=== PATIENT | male | born 1980 | race Caucasian/White ===

== ENCOUNTER 2020-04-29 16:30 | Observation (INO) | payer MEDICARE, OTHER ==
[2020-04-29] MEDS ORDERED: ASPIRIN 81 MG TABLET, CHEWABLE PO ONE (16:46)
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
[2020-04-29 17:04] LABS: ABSOLUTE LYMPHOCYTES (AUTO) 2.1 10^3/uL (0.5-4.7); ABSOLUTE MONOCYTES (AUTO) 0.4 10^3/uL (0.1-1.4); BASOPHILS % (AUTO) 0.5 % (0-2); EOSINOPHILS % (AUTO) 0.4 % (0-6); HEMATOCRIT 49.2 % (37.9-51.0); LYMPHOCYTES % (AUTO) 28.1 % (13-45); MEAN CORPUSCULAR HEMOGLOBIN 30.8 pg (27.0-33.4); MEAN CORPUSCULAR HGB CONC 34.5 g/dL (32.0-36.0); MEAN CORPUSCULAR VOLUME 89 fl (80-97); MONOCYTES % (AUTO) 5.7 % (3-13); PLATELET COUNT 195 10^3/uL (150-450); RED BLOOD COUNT 5.51 10^6/uL (4.35-5.55); RED CELL DISTRIBUTION WIDTH 14.2 % (11.5-14.0); SEGMENTED NEUTROPHILS % (AUTO) 65.3 % (42-78); TOTAL CELLS COUNTED % (AUTO) 100 %; WHITE BLOOD COUNT 7.6 10^3/uL (4.0-10.5)
[2020-04-29 17:12] LABS: ALBUMIN 4.7 g/dL (3.5-5.0); ALKALINE PHOSPHATASE 53 U/L (38-126); ANION GAP 8 (5-19); ASPARTATE AMINO TRANSFERASE 68 U/L (17-59); BILIRUBIN,TOTAL 0.7 mg/dL (0.2-1.3); BLOOD UREA NITROGEN 20 mg/dL (7-20); CALCIUM 9.8 mg/dL (8.4-10.2); CARBON DIOXIDE 25 mmol/L (22-30); CHLORIDE 103 mmol/L (98-107); CREATINE KINASE 1268 U/L (55-170); GLUCOSE 107 mg/dL (75-110); TOTAL PROTEIN 7.3 g/dL (6.3-8.2)
--- NOTE | 2020-04-29 17:18 | RADIOLOGY REPORT (SQ) ---
EXAM DESCRIPTION: CHEST 2 VIEWS IMAGES COMPLETED DATE/TIME: 04/29/2020 4:59 pm REASON FOR STUDY: chest pain COMPARISON: None. EXAM PARAMETERS: NUMBER OF VIEWS: two views TECHNIQUE: Digital Frontal and Lateral radiographic views of the chest acquired. RADIATION DOSE: NA LIMITATIONS: none FINDINGS: LUNGS AND PLEURA: Hyperinflation of the lungs with some flattening of the diaphragms. No acute pulmonary consolidation. No pneumothorax or pleural effusion. MEDIASTINUM AND HILAR STRUCTURES: No masses or contour abnormalities. HEART AND VASCULAR STRUCTURES: Heart size at the upper limits of normal. No evidence for failure. BONES: No acute findings. HARDWARE: None in the chest. OTHER: Opaque artifact or something external to the patient overlies the anterior mediastinum on the lateral image. IMPRESSION: 1. Hyperinflation of the lungs. No acute pulmonary findings. TECHNICAL DOCUMENTATION: JOB ID: [id number] 2010 [employer]- All Rights Reserved Reading location - IP/workstation name: [email or web address]
[2020-04-29] MEDS ORDERED: MAG HYDROX/AL HYDROX/SIMETH SUSP 30 ML UDCUP PO ONE (17:45)
[2020-04-29] MEDS ORDERED: NITROGLYCERIN 0.4 MG/TAB 25 TAB/BOTTLE SL ONE (17:46)
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
--- NOTE | 2020-04-29 18:12 | RADIOLOGY REPORT (SQ) ---
EXAM DESCRIPTION: U/S ABDOMEN LIMITED W/O DOP IMAGES COMPLETED DATE/TIME: 04/29/2020 5:41 pm REASON FOR STUDY: right chest pain COMPARISON: None. TECHNIQUE: Dynamic and static grayscale images acquired of the abdomen and recorded on PACS. Franciscoo salvador selected color Doppler and spectral images recorded. LIMITATIONS: None. FINDINGS: PANCREAS: No mass in the tail of pancreas. The head and body of the pancreas were not wel l seen. LIVER: No masses. Echotexture normal. LIVER VASCULATURE: Normal directional flow of the main portal vein and hepatic veins. GALLBLADDER: No stones. Normal wall thickness. No pericholecystic fluid. ULTRASOUND-DETECTED ARREOLA'S SIGN: Negative. INTRAHEPATIC DUCTS AND COMMON DUCT: CBD and intrahepatic ducts normal caliber. No filling defects. AORTA: No aneurysm. RIGHT KIDNEY: Normal size, 14 cm. Normal echogenicity. No solid or suspicious masses. The renal pel vis is slightly prominent. No true hydronephrosis is present. No calcifications. PERITONEAL AND RIGHT PLEURAL SPACE: No ascites or effusions. OTHER: No other significant findings. IMPRESSION: Slightly prominent right renal pelvis with no true hydronephrosis. No other significant finding in the right upper quadrant. TECHNICAL DOCUMENTATION: JOB ID: [id number] 2010 [employer]- All Rights Reserved Reading location - IP/workstation name: [email or web address]
[2020-04-29 18:25] LABS: APPEARANCE,URINE CLEAR; BILIRUBIN,URINE NEGATIVE (NEGATIVE); COLOR,URINE STRAW; GLUCOSE, URINE NEGATIVE (NEGATIVE); KETONES,URINE NEGATIVE (NEGATIVE); LEUKOCYTE ESTERASE,URINE NEGATIVE (NEGATIVE); NITRITE,URINE NEGATIVE (NEGATIVE); PROTEIN,URINE NEGATIVE (NEGATIVE); URINE SPECIFIC GRAVITY 1.003; UROBILINOGEN,URINE NEGATIVE mg/dL (<2.0)
[2020-04-29 18:41] LABS: URINE AMPHETAMINES SCREEN NEGATIVE; URINE BARBITURATES SCREEN NEGATIVE; URINE BENZODIAZEPINES SCREEN NEGATIVE; URINE COCAINE SCREEN NEGATIVE; URINE MARIJUANA (THC) SCREEN NEGATIVE; URINE METHADONE SCREEN NEGATIVE; URINE PHENCYCLIDINE SCREEN NEGATIVE
[2020-04-29] MEDS ORDERED: PROMETHAZINE HCL INJ 25 MG/1 ML VIAL IV PRN (21:15)
[2020-04-29] MEDS ORDERED: MAGNESIUM HYDROXIDE SUSP 30 ML UDCUP PO PRN (21:15)
[2020-04-29] MEDS ORDERED: LORAZEPAM INJ 2 MG/1 ML VIAL IV PRN (21:21)
[2020-04-29] MEDS ORDERED: GUAIFENESIN SYRP 200 MG/10 ML UDC PO PRN (21:21)
[2020-04-29] MEDS ORDERED: MELATONIN 5 MG TABLET PO PRN (21:21)
[2020-04-29] MEDS ORDERED: HYDROMORPHONE HCL INJ/PF 2 MG/ML AMPULE IV PRN (21:21)
[2020-04-29] MEDS ORDERED: ACETAMINOPHEN 325 MG TABLET PO PRN (21:21)
[2020-04-29] MEDS ORDERED: INSULIN REG, HUMAN 100 UNIT/ML 3 ML VIAL (PYX) SUBCUT PRN (21:21)
[2020-04-29] MEDS ORDERED: GLUCAGON,HUMAN RECOMB 1 MG INJ IM PRN (21:23)
[2020-04-29] MEDS ORDERED: DEXTROSE 50%-WATER 25 GM/50 ML DISP.SYRIN IV PRN ×2 (21:23)
[2020-04-29] MEDS ORDERED: DEXTROSE 40% GEL 15 GM TUBE PO PRN ×2 (21:23)
[2020-04-29 22:45] LABS: CREATINE KINASE MB 3.92 ng/mL (<4.55)
[2020-04-29 22:55] LABS: TROPONIN I < 0.012 ng/mL
[2020-04-29] MEDS: FAMOTIDINE 20 MG TABLET PO SCH (22:57)
[2020-04-29] MEDS: METOCLOPRAMIDE HCL 10 MG TABLET PO SCH (22:57)
[2020-04-29] MEDS: MAG HYDROX/AL HYDROX/SIMETH SUSP 30 ML UDCUP PO SCH (22:57)
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
[2020-04-30 07:14] LABS: HEMATOCRIT 47.4 % (37.9-51.0); HEMOGLOBIN 16.4 g/dL (13.5-17.0); MEAN CORPUSCULAR HEMOGLOBIN 31.2 pg (27.0-33.4); MEAN CORPUSCULAR HGB CONC 34.6 g/dL (32.0-36.0); MEAN CORPUSCULAR VOLUME 90 fl (80-97); PLATELET COUNT 186 10^3/uL (150-450); RED BLOOD COUNT 5.27 10^6/uL (4.35-5.55); RED CELL DISTRIBUTION WIDTH 14.3 % (11.5-14.0)
[2020-04-30 07:32] LABS: ANION GAP 6 (5-19); BLOOD UREA NITROGEN 19 mg/dL (7-20); CALCIUM 9.1 mg/dL (8.4-10.2); CARBON DIOXIDE 26 mmol/L (22-30); CHLORIDE 106 mmol/L (98-107); CHOLESTEROL 150.26 mg/dL (0-200); GLUCOSE 86 mg/dL (75-110); TRIGLYCERIDES 78 mg/dL (<150)
[2020-04-30 07:43] LABS: DIRECT LDL 98 mg/dL (<100)
[2020-04-30 07:44] LABS: CREATINE KINASE MB 3.25 ng/mL (<4.55)
[2020-04-30 07:50] LABS: TROPONIN I < 0.012 ng/mL
[2020-04-30] MEDS ORDERED: METFORMIN HCL 500 MG TABLET PO SCH (08:00)
[2020-04-30] MEDS: METOCLOPRAMIDE HCL 10 MG TABLET PO SCH ×2 (09:04→11:50)
[2020-04-30] MEDS: MAG HYDROX/AL HYDROX/SIMETH SUSP 30 ML UDCUP PO SCH ×2 (09:04→13:42)
[2020-04-30] MEDS: FAMOTIDINE 20 MG TABLET PO SCH (09:07)
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
[2020-04-30] MEDS ORDERED: DOCUSATE SODIUM 100 MG CAPSULE PO SCH (10:00)
[2020-04-30] MEDS ORDERED: ENOXAPARIN SODIUM INJ 40 MG/0.4 ML DISP.SYRIN SUBCUT SCH (10:00)
[2020-04-30] MEDS ORDERED: ASPIRIN 81 MG TABLET, CHEWABLE PO SCH (10:00)
[2020-04-30 13:10] LABS: CREATINE KINASE MB 2.86 ng/mL (<4.55)
[2020-04-30 13:14] LABS: TROPONIN I < 0.012 ng/mL
[2020-04-30] MEDS ORDERED: DULOXETINE HCL 20 MG CAPSULE.DR PO SCH (14:00)
[2020-04-30 17:13] VITALS: BP 125/64
--- NOTE | 2020-04-30 20:30 | XCELERA REPORT ---
[address] [address] Transthoracic Echocardiogram Report Name: GODWIN NICOLAS Age: 40 yrs Gender: Male : 1980 Patient Status: Inpatient Patient Location: [address] [place] [address] Study Date: 04/30/2020 03:11 PM Height: 70 in Weight: 227 lb BSA: 2.2 m2 Procedure: A complete two-dimensional transthoracic echocardiogram was performed (2D, M-mode, spectral and color flow Doppler). Study Quality: Good. Reason For Study: chest pain Ordering Physician: DONALDO BAUER Performed By: CHANG Interpretation Summary The left ventricle is mildly dilated. Left ventricular systolic function is normal. The Ejection Fraction estimate is 55-60%. The left ventricular wall motion is normal. There is no thrombus. Trace MR, trace TR, trace PI. No prior studies for comparison. MMode/2D Measurements & Calculations RVDd: 3.7 cm LVIDd: 6.3 cm FS: 33.5 % Ao root diam: IVSd: 1.1 cm LVIDs: 4.2 cm EDV(Teich): 3.5 cm 204.2 ml Ao root area: LVPWd: 1.2 cm ESV(Teich): 9.8 cm2 79.3 ml LA dimension: EF(Teich): 61.2 % 3.6 cm LVLd ap4: 8.7 cm SV(MOD-sp4): EDV(MOD-sp4): 104.0 ml 168.0 ml LVLs ap4: 7.4 cm ESV(MOD-sp4): 64.0 ml EF(MOD-sp4): 61.9 % Doppler Measurements & Calculations MV E max cherelle: MV P1/2t max cherelle: Ao V2 max: LV V1 max P.9 cm/sec 143.6 cm/sec 159.6 cm/sec 6.1 mmHg MV A max cherelle: MV P1/2t: 91.6 msec Ao max PG: LV V1 max: 45.0 cm/sec MVA(P1/2t): 2.4 cm2 10.2 mmHg 123.4 cm/sec MV E/A: 2.9 MV dec slope: 458.9 cm/sec2 MV dec time: 0.30 sec PA V2 max: PI end-d cherelle: TR max cherelle: MV P1/2t-pr_phl: 104.6 cm/sec 113.4 cm/sec 230.2 cm/sec 91.6 msec PA max P.4 mmHg TR max P.2 mmHg Left Ventricle The left ventricle is mildly dilated. Left ventricular systolic function is normal. The Ejection Fraction estimate is 55-60%. The left ventricular wall motion is normal. There is no thrombus. Right Ventricle The right ventricle is normal in size, thickness and function. The right ventricular systolic function is normal. Atria The right atrium is normal. The left atrial size is normal. Mitral Valve The mitral valve is normal in structure and function. There is no mitral valve stenosis. There is a trace amount of mitral regurgitation. Aortic Valve The aortic valve is normal in structure and functions normally. There is no aortic valve stenosis. No aortic regurgitation is present. Tricuspid Valve The tricuspid is normal in structure and function. There is a trace amount of tricuspid regurgitation. Pulmonic Valve The pulmonic valve is normal in structure and function. There is a trace or physiologic amount of pulmonic regurgitation. Effusions There is no pericardial effusion. There is no pleural effusion. : DONALDO BAUER Antonio
--- NOTE | 2020-05-02 18:12 | PDOC DISCHARGE SUMMARY ---
Impression - Admit/DC Date/PCP Admission Date/Primary Care Provider: 04/29/20 20:18 Discharge Date: 10/31/19 - Discharge Diagnosis (1) Chest pain Is this a current diagnosis for this admission?: Yes (2) Rhabdomyolysis Is this a current diagnosis for this admission?: Yes (3) PEDRO (acute kidney injury) Is this a current diagnosis for this admission?: Yes (4) History of prediabetes Is this a current diagnosis for this admission?: Yes (5) High body mass index (BMI) Is this a current diagnosis for this admission?: Yes - Additional Information Resuscitation Status: Full Code Discharge Diet: As Tolerated Discharge Activity: Activity As Tolerated, Balance Activity w/Rest Referrals: GEENA SANDERSON MD [ACTIVE PROVISIONAL STAFF] - Prescriptions: Aspirin [Aspirin 81 mg Chewable Tablet] 81 mg PO DAILY 30 Days #30 tab.chew Home Medications: Duloxetine HCl [Cymbalta 20 mg Capsule.dr] 20 mg PO DAILY 04/29/20 Metformin HCl [Metformin HCl ER] 500 mg PO DAILY 04/29/20 Omeprazole 40 mg PO DAILY 04/29/20 Aspirin [Aspirin 81 mg Chewable Tablet] 81 mg PO DAILY 30 Days #30 tab.chew 04/30/20 History of Present Illiness History of Present Illness: GODWIN NICOLAS is a 40 year old male who presents to the emergency room with a 1 month history of chest pain. He admits intermittent episodes of moderately severe, constant burning pressure in his substernal and epigastric regions radiating straight through to his back and lasting for several hours, his current episode began on the late evening of 04/28/2020 and is still present. The episodes have occurred while he is at rest and are worse at night. The episodes began after he started taking an oral thyroid replacement hormone provided to him by an [id number] primary care provider. The episodes resolved when he discontinued taking any thyroid medication, but he was instructed to resume taking the medication at a reduced dosage and the pain recurred resulting in his discontinuation of thyroid replacement hormone. He was treated by [facility] with Prilosec but did not fill his prescription until today and has only taken 1 dose of this medication. His nocturnal pain episodes have been accompanied by diaphoresis and associated with mild dyspnea. He denies other associated or accompanying signs and symptoms. He denies prior similar episodes. He has not identified any additional aggravating or ameliorating factors for his pain. In the emergency room he was found to have normal cardiac enzymes and an EKG which revealed no evidence of ischemia or myocardial injury. Dr. Sanderson was consulted by the emergency room physician and asked that the patient be admitted to observation status by the hospital service with a consultation for his evaluation. Hospital Course Hospital Course: (1) Chest pain Likely musculoskeletal in origin patient is very athletic and muscular and works out excessively. Noncardiac. Resolved. Troponins negative x3. Lipid panel WNL. Hemoglobin A1c 5.3. EKG no acute changes. Cardiology was consulted. Recommendation was outpatient stress test. Patient was scheduled to follow-up with Dr. Sanderson on 05/02/2024 stress test. Stat 2D echo negative for any acute changes. (2) Rhabdomyolysis Denies any trauma however patient works out excessively and is very muscular and also taking creatine supplement. Initially creatinine was elevated. Was a started on IV fluids. Creatinine back to normal electrolytes WNL. Patient was advised on good hydration, cutting down on her workout regimen and avoiding supplements and nephrotoxic meds. CK level not back to normal per patient very anxious to leave the hospital. Patient was advised to come back to ED if develops musculoskeletal pain or decrease in urinary output. (3) PEDRO (acute kidney injury) Resolved. Prerenal. Due to dehydration and rhabdomyolysis due to excessive workout. Patient is very athletic and muscular and works out excessively excessively to take supplements. Patient was started on IV hydration and creatinine level returned back to normal limits. Patient was extensively advised on good hydration, good BP control, avoiding any nephrotoxic meds and supplements, also cutting down on his workout regimen. He was advised to follow-up with his PCP for a follow-up BMP. (4) History of prediabetes History of prediabetes, takes metformin at home. Hemoglobin A1c 5.3. Advised to follow-up with PCP and resume his metformin as outpatient. (5) High body mass index (BMI) BMI 32.7. Hemoglobin A1c 5.3. TSH WNL. Lipid panel WNL. Patient is not obese however extremely muscular therefore his BMI is elevated. Physical Exam Vital Signs: Temp Pulse Resp BP Pulse Ox 97.7 F 55 L 18 125/64 97 04/30/20 17:11 04/30/20 17:11 04/30/20 17:11 04/30/20 17:11 04/30/20 17:11 Intake & Output 05/01/20 05/02/20 05/03/20 06:59 06:59 06:59 Intake Total 700 Balance 700 General appearance: PRESENT: no acute distress, well-developed, well-nourished Head exam: PRESENT: atraumatic, normocephalic Neck exam: ABSENT: carotid bruit, JVD, lymphadenopathy, thyromegaly Respiratory exam: PRESENT: clear to auscultation jeane. ABSENT: rales, rhonchi, wheezes Cardiovascular exam: PRESENT: RRR. ABSENT: diastolic murmur, rubs, systolic murmur GI/Abdominal exam: PRESENT: normal bowel sounds, soft. ABSENT: distended, guarding, mass, organolmegaly, rebound, tenderness Neurological exam: PRESENT: alert, awake, oriented to person, oriented to place, oriented to time, oriented to situation, CN II-XII grossly intact. ABSENT: motor sensory deficit Skin exam: PRESENT: dry, intact, warm. ABSENT: cyanosis, rash Results Laboratory Results: WBC 7.0 10^3/uL (4.0-10.5) 04/30/20 06:01 RBC 5.27 10^6/uL (4.35-5.55) 04/30/20 06:01 Hgb 16.4 g/dL (13.5-17.0) 04/30/20 06:01 Hct 47.4 % (37.9-51.0) 04/30/20 06:01 MCV 90 fl (80-97) 04/30/20 06:01 MCH 31.2 pg (27.0-33.4) 04/30/20 06:01 MCHC 34.6 g/dL (32.0-36.0) 04/30/20 06:01 RDW 14.3 % (11.5-14.0) H 04/30/20 06:01 Plt Count 186 10^3/uL (150-450) 04/30/20 06:01 Lymph % (Auto) 28.1 % (13-45) 04/29/20 16:40 Wilkinson % (Auto) 5.7 % (3-13) 04/29/20 16:40 Eos % (Auto) 0.4 % (0-6) 04/29/20 16:40 Baso % (Auto) 0.5 % (0-2) 04/29/20 16:40 Absolute Neuts (auto) 5.0 10^3/uL (1.7-8.2) 04/29/20 16:40 Absolute Lymphs (auto) 2.1 10^3/uL (0.5-4.7) 04/29/20 16:40 Absolute Monos (auto) 0.4 10^3/uL (0.1-1.4) 04/29/20 16:40 Absolute Eos (auto) 0.0 10^3/uL (0.0-0.6) 04/29/20 16:40 Absolute Basos (auto) 0.0 10^3/uL (0.0-0.2) 04/29/20 16:40 Seg Neutrophils % 65.3 % (42-78) 04/29/20 16:40 Sodium 138.3 mmol/L (137-145) 04/30/20 06:01 Potassium 4.0 mmol/L (3.6-5.0) 04/30/20 06:01 Chloride 106 mmol/L (98-107) 04/30/20 06:01 Carbon Dioxide 26 mmol/L (22-30) 04/30/20 06:01 Anion Gap 6 (5-19) 04/30/20 06:01 BUN 19 mg/dL (7-20) 04/30/20 06:01 Creatinine 1.23 mg/dL (0.52-1.25) 04/30/20 06:01 Est GFR ( Amer) > 60 (>60) 04/30/20 06:01 Est GFR (MDRD) Non-Af > 60 (>60) 04/30/20 06:01 Glucose 86 mg/dL (75-110) 04/30/20 06:01 POC Glucose 115 mg/dL (70-110) H 04/30/20 12:13 Hemoglobin A1c % 5.2 % (4.7-6.0) 04/30/20 06:01 Calcium 9.1 mg/dL (8.4-10.2) 04/30/20 06:01 Magnesium 2.1 mg/dL (1.6-2.3) 04/30/20 06:01 Total Bilirubin 0.7 mg/dL (0.2-1.3) 04/29/20 16:40 Direct Bilirubin 0.0 mg/dL (0.0-0.4) 04/29/20 16:40 Neonat Total Bilirubin Not Reportable 04/29/20 16:40 Neonat Direct Bilirubin Not Reportable 04/29/20 16:40 Neonat Indirect Bili Not Reportable 04/29/20 16:40 AST 68 U/L (17-59) H 04/29/20 16:40 ALT 58 U/L (<50) H 04/29/20 16:40 Alkaline Phosphatase 53 U/L (38-126) 04/29/20 16:40 Creatine Kinase 944 U/L (55-170) H 04/30/20 12:21 CK-MB (CK-2) 2.86 ng/mL (<4.55) 04/30/20 12:22 Troponin I < 0.012 ng/mL 04/30/20 12:22 Total Protein 7.3 g/dL (6.3-8.2) 04/29/20 16:40 Albumin 4.7 g/dL (3.5-5.0) 04/29/20 16:40 Triglycerides 78 mg/dL (<150) 04/30/20 06:01 Cholesterol 150.26 mg/dL (0-200) 04/30/20 06:01 LDL Cholesterol Direct 98 mg/dL (<100) 04/30/20 06:01 VLDL Cholesterol 16.0 mg/dL (10-31) 04/30/20 06:01 HDL Cholesterol 38 mg/dL (>40) L 04/30/20 06:01 Lipase 147.8 U/L (23-300) 04/29/20 16:40 TSH 4.32 uIU/mL (0.47-4.68) 04/30/20 06:01 Urine Color STRAW 04/29/20 17:47 Urine Appearance CLEAR 04/29/20 17:47 Urine pH 6.0 (5.0-9.0) 04/29/20 17:47 Ur Specific Ismay 1.003 04/29/20 17:47 Urine Protein NEGATIVE mg/dL (NEGATIVE) 04/29/20 17:47 Urine Glucose (UA) NEGATIVE mg/dL (NEGATIVE) 04/29/20 17:47 Urine Ketones NEGATIVE mg/dL (NEGATIVE) 04/29/20 17:47 Urine Blood SMALL (NEGATIVE) H 04/29/20 17:47 Urine Nitrite NEGATIVE (NEGATIVE) 04/29/20 17:47 Urine Bilirubin NEGATIVE (NEGATIVE) 04/29/20 17:47 Urine Urobilinogen NEGATIVE mg/dL (<2.0) 04/29/20 17:47 Ur Leukocyte Esterase NEGATIVE (NEGATIVE) 04/29/20 17:47 Urine RBC (Auto) 0 /HPF 04/29/20 17:47 Urine Mucus (Auto) RARE /LPF 04/29/20 17:47 Urine Ascorbic Acid NEGATIVE (NEGATIVE) 04/29/20 17:47 Urine Opiates Screen NEGATIVE 04/29/20 17:47 Urine Methadone Screen NEGATIVE 04/29/20 17:47 Ur Barbiturates Screen NEGATIVE 04/29/20 17:47 Ur Phencyclidine Scrn NEGATIVE 04/29/20 17:47 Ur Amphetamines Screen NEGATIVE 04/29/20 17:47 U Benzodiazepines Scrn NEGATIVE 04/29/20 17:47 Urine Cocaine Screen NEGATIVE 04/29/20 17:47 U Marijuana (THC) Screen NEGATIVE 04/29/20 17:47 Serum Alcohol < 10 mg/dL (NONE DETECTED) 04/29/20 16:40 04/29/20 04/29/20 04/29/20 16:40 16:40 21:55 CK-MB (CK-2) 5.19 H 3.92 Troponin I < 0.012 < 0.012 04/30/20 04/30/20 06:01 12:22 CK-MB (CK-2) 3.25 2.86 Troponin I < 0.012 < 0.012 Impressions: Abdomen Ultrasound 04/29/20 16:47 IMPRESSION: Slightly prominent right renal pelvis with no true hydronephrosis. No other significant finding in the right upper quadrant. Chest X-Ray 04/29/20 16:47 IMPRESSION: 1. Hyperinflation of the lungs. No acute pulmonary findings. Stroke Is this a Stroke Patient?: No Acute Heart Failure - Is this a Heart Failure Patient?: No
== END 2020-04-30 17:39 | disposition home or self-care (01) ==
LOC: ER 16:30 → EH 20:18 → 5 21:30
PROVIDERS: ADMIT Emergency Medicine; ATTEND Emergency Medicine
DX: R07.89 Other chest pain (principal); M62.82 Rhabdomyolysis; N17.9 Acute kidney failure, unspecified; R73.03 Prediabetes; R61 Generalized hyperhidrosis; R06.00 Dyspnea, unspecified; E86.0 Dehydration; E03.9 Hypothyroidism, unspecified; E78.5 Hyperlipidemia, unspecified; G62.9 Polyneuropathy, unspecified; S41.101S Unspecified open wound of right upper arm, sequela; W34.00XS Accidental discharge from unspecified firearms or gun, sequela; G89.21 Chronic pain due to trauma; M54.9 Dorsalgia, unspecified; R10.9 Unspecified abdominal pain; Z79.84 Long term (current) use of oral hypoglycemic drugs; Z82.49 Family history of ischemic heart disease and other diseases of the circulatory system; Z79.82 Long term (current) use of aspirin
CPT/HCPCS: 99285; 36415 ×2; 82553 ×2; 82962 ×2; 80307 ×2; 82550 ×2; 83690; 83735 ×2; 84443; 85025; 85027; 80048; 80053; 81001; 84484 ×2; 83036; 80061; 93306; 71046; 76705; A9270 ×12; J3490 ×2

== ENCOUNTER → 2020-05-03 | Outpatient (CLI) | payer MEDICARE, OTHER ==
--- NOTE | 2020-05-03 12:32 | DRAGON STRESS TEST REPORT ---
Name: Faisal Martin : Apr Date: APR 25 The patient underwent a stress/rest, single isotope SPECT Imaging with exercise stress and gated SPECT imaging for evaluation of atypical chest pain. The patient underwent treadmill exercise using the Arthur protocol, completing 11:45 minutes and completing an estimated workload of 13.4 metabolic equivalents (METS). The test was terminated due to fatigue. The heart rate was 54 beats per minute at baseline and increased to 164 beats at peak exercise, which was 98% of the maximum predicted heart rate. The rest blood pressure was 129/64 mm/Hg and increased to 167/59 mm/Hg, which is a normal response. The patient complained of no symptoms during the procedure. The resting electrocardiogram demonstrated sinus bradycardia and did not show ST-segment changes consistent with ischemia. Myocardial perfusion imaging was performed at rest following the injection of 14.80mCi of sestamibi. At peak exercise, the patient was injected with 45.9mCi of sestamibi and exercise was continued for minute(s). Gating post-stress tomographic imaging was performed 60 minutes after stress. Findings The overall quality of the study is excellent. Raw images demonstrate possible diaphragmatic attenuation artifact. Left ventricular cavity is noted to be enlarged on the rest and stress studies. Resting SPECT images demonstrate a medium sized, of moderate intensity perfusion defect in the inferior wall. The stress images demonstrate a medium sized, of moderate intensity perfusion defect in the inferior wall. Gated SPECT imaging reveals normal myocardial thickening and wall motion. The left ventricular ejection fraction was calculated to be 38% however it appeared to be normal on visual inspection. Impression -Myocardial perfusion imaging is normal with what appears to be diaphragmatic attenuation artifact. -There is no scintigraphic evidence of ischemia or infarct. -Overall left ventricular systolic function was abnormal and calculated at 38% however it was normal on visual inspection. There was no wall motion abnormalities. -There are no prior studies for comparison. [facility]
== END ==
LOC: RAD 07:00
PROVIDERS: ATTEND Internal Medicine Cardiovascular Disease
DX: R07.9 Chest pain, unspecified (principal)
CPT/HCPCS: 93017; 78452; A9500; Q9969